=== PATIENT | female | born 1950 | race Caucasian/White ===

== ENCOUNTER 2021-01-31 06:28 | Outpatient (REF) | payer MEDICARE, OTHER, SELFPAY ==
[2021-01-31 07:07] LABS: MANUAL DIFF FLAG NO
[2021-01-31 07:10] LABS: Basophils Absolute Auto 0.1 X10*3/uL (0.0-0.2); Basophils Percent Auto 0.8 % (0-2); Eosinophils Absolute Auto 0.3 X10*3/uL (0.0-0.4); Hematocrit 44.8 % (37-47); Hemoglobin 14.8 g/dl (12.0-16.0); Imm Gran Abs Auto 0.01 X10*3/uL (0.00-0.03); Imm Gran Pct Auto 0.2 % (0.0-0.4); Lymphocytes Absolute Auto 2.2 X10*3/uL (1.2-4.9); Mean Corpuscular Hemoglobin 29.2 pg (27.0-33.0); Mean Corpuscular Volume 88.4 fL (80-98); Mean Platelet Volume 11.2 fL (9.4-12.3); Monocytes Absolute Auto 0.5 X10*3/uL (0.1-1.2); Monocytes Percent Auto 7.7 % (2-11); Neutrophils Percent Auto 50.3 % (45-73); Platelet Count 266 X10*3/uL (160-400); Red Blood Count 5.07 X10*6/uL (4.20-5.50); Red Cell Distribution Width 12.7 % (11.0-16.0)
[2021-01-31 07:48] LABS: Alanine Aminotransferase 19 U/L (0-31); Albumin Level 4.4 g/dL (3.5-5.0); Alkaline Phosphatase 45 U/L (39-117); Anion Gap 12 (12-20); Aspartate Amino Transferase 21 U/L (5-31); Bilirubin Total 0.7 mg/dL (0.0-1.0); Blood Urea Nitrogen 13 mg/dL (9-16); Calcium 9.6 mg/dL (8.4-10.2); Carbon Dioxide 31 mmol/L (22-29); Chloride 102 mmol/L (96-108); Cholesterol 225 mg/dL; Estimated Glomerular Filt Rate > 60; Glucose Fasting 103 mg/dL (60-99); HDL Cholesterol 56 mg/dL; LDL Cholesterol Calculated 142 mg/dl; Potassium 4.3 mmol/L (3.3-5.1); Sodium 141 mmol/L (135-145); Total Protein 7.6 g/dL (6.5-8.0); Triglycerides 138 mg/dL
== END 2021-01-31 06:29 | disposition home or self-care (01) ==
LOC: HO.LAB 06:28
PROVIDERS: PCP Internal Medicine; Visit Provider Internal Medicine
DX: I10 Essential (primary) hypertension (principal); K57.92 Diverticulitis of intestine, part unspecified, without perforation or abscess without bleeding; E78.00 Pure hypercholesterolemia, unspecified
CPT/HCPCS: 36415; 80053; 80061; 85025

== ENCOUNTER 2021-06-23 06:40 | Outpatient (REF) | payer MEDICARE, OTHER, SELFPAY ==
[2021-06-23 07:18] LABS: Cholesterol 215 mg/dL; HDL Cholesterol 61 mg/dL; LDL Cholesterol Calculated 130 mg/dl; Triglycerides 123 mg/dL
== END 2021-06-23 06:41 | disposition home or self-care (01) ==
LOC: HO.LAB 06:40
PROVIDERS: PCP Internal Medicine; Visit Provider Internal Medicine
DX: E78.00 Pure hypercholesterolemia, unspecified (principal)
CPT/HCPCS: 36415; 80061

== ENCOUNTER 2021-07-20 07:55 | Outpatient (REF) | payer MEDICARE, OTHER, SELFPAY ==
--- NOTE | ~2021-07-20 | MM_ITS ---
EXAMINATION: MM SCREENING DIGITAL BREAST TOMOSYNTHESIS, BILATERAL CLINICAL INFORMATION: Screening. Asymptomatic. The lifetime risk of breast cancer based on the Tyrer-Cuzick Model is 7%. COMPARISON: Mammography: 06/07/2020, 06/02/2019, 05/29/2018 TECHNIQUE: Digital breast tomosynthesis is performed in both the craniocaudal and mediolateral oblique views along with computer-aided detection (CAD). Synthesized 2D images are generated from the tomosynthesis. Additional right CC view is provided. FINDINGS: The breasts are almost entirely fatty (ACR BI-RADS breast composition Category a). There are no significant masses, abnormal calcifications, or other abnormalities. Background stromal markings are stable. The axilla are unremarkable. Again, there are some dermal lesions overlying the bilateral posterior medial inferior breasts. No significant changes from prior studies. MM/MM tomosynthesis screening BI IMPRESSION: No mammographic evidence of malignancy. ASSESSMENT: BI-RADS 2: Benign RECOMMENDATION: Routine annual mammography screening. This patient's information was entered into a reminder system with a target due date for their next mammogram.
== END 2021-07-20 07:56 | disposition home or self-care (01) ==
LOC: HO.MAMMO 07:55
PROVIDERS: PCP Internal Medicine; Visit Provider Obstetrics & Gynecology
DX: Z12.31 Encounter for screening mammogram for malignant neoplasm of breast (principal)
CPT/HCPCS: 77063; 77067

== ENCOUNTER 2022-03-16 06:30 | Day surgery (SDC) | payer MEDICARE, OTHER, SELFPAY ==
[2022-03-09 10:58] VITALS: BMI 31.8
--- NOTE | 2022-03-15 08:43 | HO.ANESPROP2 ---
Documented by User: Britta Jarquin NP 03/15/22 08:44 HPI - Anesthesia Eval Consult details Narrative: 71yo F for Colonoscopy Myasthenia Gravis - pyridostigmine BID PMFSH Past Medical History Medical History HTN (hypertension) Myasthenia gravis Surgical History Surgical History H/O colonoscopy Hx of section Hx of thymectomy Social History Social History Household Members: Spouse Patient Tobacco Use Status: Never used Tobacco Use of substances other than those prescribed or required for medical reasons: No Are you DNR?: No Advance Directives: No Advance Directives Information Provided: Yes Nutrition Risks: No Nutritional Risk Meds Allergies Allergy/AdvReac Type Severity Reaction Status Date / Time quinine [QUININE] Allergy Unknown UNKNOWN Verified 03/16/22 06:34 Home Medications Medication Instructions Recorded Confirmed Last Taken Type cholecalciferol (vitamin D3) 25 25 mcg PO DAILY 03/09/22 03/09/22 Unknown History mcg (1,000 unit) capsule (Vitamin D3) hydrochlorothiazide 12.5 mg tablet 12.5 mg PO DAILY 03/09/22 03/09/22 Unknown History pyridostigmine bromide 60 mg tablet 60 mg PO BID 03/09/22 03/09/22 03/16/22 History valsartan 80 mg tablet 80 mg PO DAILY 03/09/22 03/09/22 03/16/22 History Exam Exam Date and Time: March 15, 2022 0843 Height,Weight and Vital Signs: Height 5 ft 5 in Weight 86.636 kg Documented by User: Shanita Mclean MD 03/16/22 07:36 HPI - Anesthesia Eval Consult details Narrative: 71yo F for Colonoscopy Myasthenia Gravis - pyridostigmine am PMFSH Active Problems Active Problems: Myasthenia controlled. Pyridostigmine 45mg am. Asymptomatic No MERCEDEZ Past Medical History Medical History HTN (hypertension) Myasthenia gravis Family History Family history of problems with anesthesia: No Surgical History Surgical History H/O colonoscopy Hx of section Hx of thymectomy History of Problems with Anesthesia: No Social History Social History Household Members: Spouse Patient Tobacco Use Status: Never used Tobacco Use of substances other than those prescribed or required for medical reasons: No Are you DNR?: No Advance Directives: No Advance Directives Information Provided: Yes Nutrition Risks: No Nutritional Risk Meds Allergies Allergy/AdvReac Type Severity Reaction Status Date / Time quinine [QUININE] Allergy Unknown UNKNOWN Verified 03/16/22 06:34 Home Medications Medication Instructions Recorded Confirmed Last Taken Type cholecalciferol (vitamin D3) 25 25 mcg PO DAILY 03/09/22 03/09/22 Unknown History mcg (1,000 unit) capsule (Vitamin D3) hydrochlorothiazide 12.5 mg tablet 12.5 mg PO DAILY 03/09/22 03/09/22 Unknown History pyridostigmine bromide 60 mg tablet 60 mg PO BID 03/09/22 03/09/22 03/16/22 History valsartan 80 mg tablet 80 mg PO DAILY 03/09/22 03/09/22 03/16/22 History Exam Height,Weight and Vital Signs: Height 5 ft 5 in Weight 86.636 kg Vital Signs Temp Pulse Resp BP Pulse Ox 03/16/22 06:42 97.6 F 83 16 175/94 H 98 Airway Mallampati Class: II TM Dist: >3cm Neck ROM: Full Partial: Lower Heart: RRR Lungs: CTAB Assessment and Plan Assessment Anesthesia Assessment: Anesthesia Plan Discussed and Chart Reviewed Final Anesthetic Review Family History of Problems with Anesthesia: No History of Problems with Anesthesia: No NPO: Yes ASA Class: II Final Preanesthetic Review: No Changes in Pt Med Stat, Meds/Allgs Chart Reviewed, Consent Obtained/Reviewed and Anes Risks/Benef Reviewed Patient Risk: Intermediate Procedure Risk: Low Assessment/Block/Sedation in SS: Assess/Block/Sedation-SS Anesthetic Plan Anesthetic Plan: MAC: Disposition: Standard PACU
[2022-03-16 06:35] VITALS: BMI 31.2
[2022-03-16 06:42] VITALS: BP 175/94; PULSE 83; RESP 16; TEMP 36.4; O2SAT 98
--- NOTE | 2022-03-16 06:48 | PC.NURSE ---
patient sttes she runs high with her bp. asymptomatic.
[2022-03-16] MEDS: Lactated Ringers 1,000 ML 100 ML IVCONT (06:56)
--- NOTE | 2022-03-16 08:26 | PM.OP ---
Brief Operative Note Date of Service: 03/16/22 Pre-op diagnosis: Screening Post-op diagnosis: other (Diverticulosis, Internal hemorrhoids) Procedure: Colonoscopy to the cecum and TI Surgeon: Tony Michel Anesthesia: MAC Was an Aircraft Painter Apprentice used for this Procedure?: No Estimated blood loss (mL): 0 Pathology: none sent Condition: stable Disposition: PACU
[2022-03-16 08:27] VITALS: BP 97/52; PULSE 85; RESP 16; TEMP 36.3; O2SAT 96
[2022-03-16 08:42] VITALS: BP 123/61; PULSE 63; RESP 16; TEMP 36.3; O2SAT 96
--- NOTE | 2022-03-16 16:12 | OP_ITS ---
SURGEON: Tony Michel MD INDICATIONS: The patient presents for evaluation of colorectal cancer screening. Full consent has been obtained from her for this, including risks of bleeding and perforation. PREOPERATIVE DIAGNOSIS: Colorectal cancer screening. POSTOPERATIVE DIAGNOSIS: PROCEDURE PERFORMED: Colonoscopy to the cecum and terminal ileum. ESTIMATED BLOOD LOSS: COMPLICATIONS: ANESTHESIA: Monitored anesthesia care. ASSISTANTS: SPECIMENS: POSTOPERATIVE DIAGNOSES: Colorectal cancer screening, diverticulosis and internal hemorrhoids. DESCRIPTION OF PROCEDURE: The patient was placed in the left lateral decubitus position. The digital rectal exam revealed no abnormalities. The Olympus video pediatric colonoscope was entered into the rectum and advanced easily to the cecum. Once in the cecum, I did identify normal-appearing cecal pouch with appendiceal orifice and a normal-appearing ileocecal valve. The terminal ileum was cannulated and appeared normal. Scope was withdrawn back from the colon. The entire cecum and ileocecal valve appeared normal. The scope was slowly withdrawn assessing all mucosal surfaces carefully. Preparation was excellent. I did not visualize any sign of polyps, colitis, nor angiodysplasia. There was a mild amount of sigmoid diverticulosis. In the rectum, scope was retroflexed visualizing internal hemorrhoids, but no other pathology. The rectal mucosa appeared normal. The scope was straightened and withdrawn from the patient. She tolerated the procedure well and was returned to recovery area in stable condition. IMPRESSION: 1. Diverticulosis. 2. Internal hemorrhoids. PLAN: Given the negative exam, no significant family history, and a negative exam in 2010, I do not think she will need any further screening colonoscopies given her age of 71. She will otherwise see me on a p.r.n. basis. Tony Michel MD RMW/OWENL / [id number]
== END 2022-03-16 09:07 | disposition home or self-care (01) ==
PROVIDERS: PCP Internal Medicine; Visit Provider Internal Medicine
PROC: 0DJD8ZZ Inspection of Lower Intestinal Tract, Via Natural or Artificial Opening Endoscopic (ICD-10-PCS; CPT 45378; principal; 2022-03-16 07:30)
DX: Z12.11 Encounter for screening for malignant neoplasm of colon (principal); K57.30 Diverticulosis of large intestine without perforation or abscess without bleeding; K64.8 Other hemorrhoids; I10 Essential (primary) hypertension; G70.00 Myasthenia gravis without (acute) exacerbation; Z90.89 Acquired absence of other organs; Z79.899 Other long term (current) drug therapy
CPT/HCPCS: G0105

== ENCOUNTER 2022-07-24 08:01 | Outpatient (REF) | payer MEDICARE, OTHER, SELFPAY ==
--- NOTE | ~2022-07-24 | MM_ITS ---
EXAMINATION: MM SCREENING DIGITAL BREAST TOMOSYNTHESIS, BILATERAL CLINICAL INFORMATION: Screening. Asymptomatic. The lifetime risk of breast cancer based on the Tyrer-Cuzick Model is 6%. COMPARISON: Mammography: 06/07/2020, 06/02/2019, 05/29/2018 TECHNIQUE: Digital breast tomosynthesis is performed in both the craniocaudal and mediolateral oblique views along with computer-aided detection (CAD). Synthesized 2D images are generated from the tomosynthesis. FINDINGS: The breasts are almost entirely fatty (ACR BI-RADS breast composition Category a). Background stromal markings are stable. Again, there are some dermal lesions overlying the posterior inferior medial breasts. There is no architectural abnormality or interval mass or developing density. No abnormal calcifications. No significant changes. MM/MM tomosynthesis screening BI IMPRESSION: No mammographic evidence of malignancy. ASSESSMENT: BI-RADS 2: Benign RECOMMENDATION: Routine annual mammography screening. This patient's information was entered into a reminder system with a target due date for their next mammogram.
== END 2022-07-24 08:02 | disposition home or self-care (01) ==
LOC: HO.MAMMO 08:01
PROVIDERS: Absent Provider Obstetrics & Gynecology; PCP Internal Medicine; Visit Provider Internal Medicine
DX: Z12.31 Encounter for screening mammogram for malignant neoplasm of breast (principal)
CPT/HCPCS: 77063; 77067

== ENCOUNTER 2022-08-14 08:36 | Outpatient (REF) | payer MEDICARE, OTHER, SELFPAY ==
[2022-08-14 08:42] LABS: MANUAL DIFF FLAG NO
[2022-08-14 09:28] LABS: Basophils Percent Auto 0.5 % (0-2); Eosinophils Absolute Auto 0.3 X10*3/uL (0.0-0.4); Eosinophils Percent Auto 4.4 % (0-4); Hematocrit 45.7 % (37.0-47.0); Hemoglobin 14.9 g/dl (12.0-16.0); Imm Gran Abs Auto 0.01 X10*3/uL (0.00-0.03); Imm Gran Pct Auto 0.1 % (0.0-0.4); Lymphocytes Absolute Auto 2.6 X10*3/uL (1.2-4.9); Lymphocytes Percent Auto 34.8 % (20-40); Mean Corpuscular HGB Conc 32.6 g/dl (31.0-35.0); Mean Corpuscular Volume 88.9 fL (80.0-98.0); Mean Platelet Volume 11.9 fL (9.4-12.3); Monocytes Absolute Auto 0.6 X10*3/uL (0.1-1.2); Monocytes Percent Auto 7.8 % (2-11); Neutrophils Absolute Auto 3.9 x10*3/uL (2.0-8.3); Neutrophils Percent Auto 52.4 % (45-73); Platelet Count 252 X10*3/uL (160-400); Red Blood Count 5.14 X10*6/uL (4.20-5.50); Red Cell Distribution Width 12.9 % (11.0-16.0); White Blood Count 7.5 X10*3/uL (4.8-10.8)
[2022-08-14 09:47] LABS: Anion Gap 17 (12-20); Blood Urea Nitrogen 15 mg/dL (9-16); Calcium 9.8 mg/dL (8.4-10.2); Carbon Dioxide 28 mmol/L (22-29); Chloride 101 mmol/L (96-108); Estimated Glomerular Filt Rate > 60; Glucose Random 98 mg/dL (60-115); Potassium 4.7 mmol/L (3.3-5.1); Sodium 141 mmol/L (135-145)
== END 2022-08-14 08:37 | disposition home or self-care (01) ==
LOC: HO.LAB 08:36
PROVIDERS: PCP Internal Medicine; Visit Provider Internal Medicine
DX: I10 Essential (primary) hypertension (principal); K57.90 Diverticulosis of intestine, part unspecified, without perforation or abscess without bleeding
CPT/HCPCS: 36415; 80048; 85025

== ENCOUNTER 2023-05-02 06:06 | Outpatient (REF) | payer MEDICARE, OTHER, SELFPAY ==
[2023-05-02 06:19] LABS: MANUAL DIFF FLAG NO
[2023-05-02 09:13] LABS: Basophils Percent Auto 0.4 % (0-2); Eosinophils Absolute Auto 0.3 X10*3/uL (0.0-0.4); Eosinophils Percent Auto 3.4 % (0-4); Hematocrit 45.7 % (37.0-47.0); Hemoglobin 14.6 g/dl (12.0-16.0); Imm Gran Abs Auto 0.02 X10*3/uL (0.00-0.03); Imm Gran Pct Auto 0.3 % (0.0-0.4); Lymphocytes Absolute Auto 2.5 X10*3/uL (1.2-4.9); Lymphocytes Percent Auto 32.6 % (20-40); Mean Corpuscular HGB Conc 31.9 g/dl (31.0-35.0); Mean Corpuscular Hemoglobin 28.5 pg (27.0-33.0); Mean Corpuscular Volume 89.3 fL (80.0-98.0); Mean Platelet Volume 12.4 fL (9.4-12.3); Monocytes Absolute Auto 0.6 X10*3/uL (0.1-1.2); Monocytes Percent Auto 7.4 % (2-11); Neutrophils Absolute Auto 4.2 x10*3/uL (2.0-8.3); Neutrophils Percent Auto 55.9 % (45-73); Platelet Count 258 X10*3/uL (160-400); Red Blood Count 5.12 X10*6/uL (4.20-5.50); Red Cell Distribution Width 13.2 % (11.0-16.0); White Blood Count 7.6 X10*3/uL (4.8-10.8)
[2023-05-02 10:07] LABS: Alanine Aminotransferase 17 U/L (0-31); Albumin Level 4.3 g/dL (3.5-5.0); Alkaline Phosphatase 46 U/L (39-117); Anion Gap 14 (12-20); Aspartate Amino Transferase 23 U/L (5-31); Bilirubin Total 0.4 mg/dL (0.0-1.0); Blood Urea Nitrogen 13 mg/dL (9-16); Calcium 9.9 mg/dL (8.4-10.2); Carbon Dioxide 27 mmol/L (22-29); Chloride 103 mmol/L (96-108); Cholesterol 213 mg/dL; Estimated Glomerular Filt Rate > 60; Glucose Fasting 89 mg/dL (60-99); HDL Cholesterol 63 mg/dL; LDL Cholesterol Calculated 133 mg/dl; Potassium 4.3 mmol/L (3.3-5.1); Sodium 140 mmol/L (135-145); Total Protein 7.4 g/dL (6.5-8.0); Triglycerides 87 mg/dL
== END 2023-05-02 06:07 | disposition home or self-care (01) ==
LOC: HO.LAB 06:06
PROVIDERS: PCP Internal Medicine; Visit Provider Internal Medicine
DX: I10 Essential (primary) hypertension (principal); E78.00 Pure hypercholesterolemia, unspecified; K57.90 Diverticulosis of intestine, part unspecified, without perforation or abscess without bleeding
CPT/HCPCS: 36415; 80053; 80061; 85025

== ENCOUNTER 2023-09-18 08:18 | Outpatient (REF) | payer MEDICARE, OTHER, SELFPAY | END 2023-09-18 08:19 | disposition home or self-care (01) | LOC: HO.MAMMO 08:18 | PROVIDERS: PCP Internal Medicine; Visit Provider Internal Medicine | DX: Z12.31 Encounter for screening mammogram for malignant neoplasm of breast (principal) | CPT/HCPCS: 77063; 77067 ==

== ENCOUNTER → 2023-09-18 08:30 | Outpatient (BNV) | payer MEDICARE, OTHER, SELFPAY | PROVIDERS: PCP Internal Medicine; Visit Provider Radiology Diagnostic Radiology | DX: Z12.31 Encounter for screening mammogram for malignant neoplasm of breast (principal) | CPT/HCPCS: 77063; 77067 ==

== ENCOUNTER 2024-06-17 13:51 | Outpatient (REF) | payer MEDICARE, OTHER, SELFPAY ==
[2024-06-17 14:18] LABS: MANUAL DIFF FLAG NO
[2024-06-17 15:21] LABS: Basophils Percent Auto 0.4 % (0-2); Eosinophils Absolute Auto 0.2 X10*3/uL (0.0-0.4); Eosinophils Percent Auto 2.5 % (0-4); Hematocrit 44.2 % (37.0-47.0); Imm Gran Abs Auto 0.03 X10*3/uL (0.00-0.03); Imm Gran Pct Auto 0.4 % (0.0-0.4); Lymphocytes Absolute Auto 2.1 X10*3/uL (1.2-4.9); Lymphocytes Percent Auto 27.6 % (20-40); Mean Corpuscular HGB Conc 33.9 g/dl (31.0-35.0); Mean Corpuscular Hemoglobin 29.3 pg (27.0-33.0); Mean Corpuscular Volume 86.3 fL (80.0-98.0); Mean Platelet Volume 11.4 fL (9.4-12.3); Monocytes Absolute Auto 0.6 X10*3/uL (0.1-1.2); Monocytes Percent Auto 7.2 % (2-11); Neutrophils Absolute Auto 4.7 x10*3/uL (2.0-8.3); Neutrophils Percent Auto 61.9 % (45-73); Platelet Count 255 X10*3/uL (160-400); Red Blood Count 5.12 X10*6/uL (4.20-5.50); White Blood Count 7.6 X10*3/uL (4.8-10.8)
[2024-06-17 15:23] LABS: Estimated Average Glucose 105 mg/dL; Hemoglobin A1c % 5.3 % (<6.0)
[2024-06-17 15:51] LABS: Alanine Aminotransferase 20 U/L (0-31); Albumin Level 4.5 g/dL (3.5-5.0); Alkaline Phosphatase 48 U/L (39-117); Anion Gap 16 (12-20); Aspartate Amino Transferase 22 U/L (5-31); Bilirubin Total 0.4 mg/dL (0.0-1.0); Blood Urea Nitrogen 12 mg/dL (9-16); C Reactive Protein 0.12 mg/dL (< or = 0.50); Calcium 10.1 mg/dL (8.4-10.2); Carbon Dioxide 24 mmol/L (22-29); Chloride 104 mmol/L (96-108); Estimated Glomerular Filt Rate > 60; Glucose Random 100 mg/dL (60-115); Potassium 3.6 mmol/L (3.3-5.1); Sodium 140 mmol/L (135-145); Total Protein 7.9 g/dL (6.5-8.0)
[2024-06-17 16:07] LABS: Free T4 (Free Thyroxine) 0.88 ng/dL (0.71-1.85); Insulin 7 uU/mL (2-29); Thyroid Stimulating Hormone 3.17 uIU/mL (0.32-4.0)
[2024-06-17 16:13] LABS: Vitamin B12 342 pg/mL (200-900)
== END 2024-06-17 13:52 | disposition home or self-care (01) ==
LOC: HO.LAB 13:51
PROVIDERS: PCP Internal Medicine; Visit Provider Internal Medicine
DX: I10 Essential (primary) hypertension (principal); R55 Syncope and collapse; R53.1 Weakness; Z13.1 Encounter for screening for diabetes mellitus
CPT/HCPCS: 36415; 80053; 82550; 82607; 83036; 83525; 84439; 84443; 85025; 86140

== ENCOUNTER 2024-09-23 08:13 | Outpatient (REF) | payer MEDICARE, OTHER, SELFPAY ==
--- OUTSIDE RECORDS SUMMARY | 2024-09-23 23:00 | XMS_ITS | Continuity of Care Document ---
Author Organization [facility] Address [address] [place] [address]- Care Team Providers Care Preschool Assistant Principal Name Role Phone Franklin Moran MD Primary Care Physician [phone] [facility] [id number] Date(s): 08/04/24 - 09/03/24 [facility] [address] [place] [id number] Attending Physician: Wagner Mata Admitting Physician: Wagner Mata Referring Physician: Wagner Mata Encounter Type: Triage Allergies, Adverse Reactions, Alerts Substance Criticality Severity Reaction Reaction Severity Status shellfish 1 High criticality Moderate very scratc hy throat Active quiNINE Unable to assess criticality Unknown avoids due totaking Mestinon Active 1carries EpiPen Medications EpiPen 2-Kwame = 0.3 mg, Intramuscular, PRN as needed for allergic reactions, 0 Refills, Maintenance, 05/13/23 10:33:00 AM EDT Start Date: 05/13/23 Status: Ordered Repeat number: 1 hydrochlorothiazide 12.5 mg oral tablet 1.5 tablet = 18.75 mg, By Mouth, Daily, Maintenance, 05/14/23 5:17:00 PM EDT, Partial fill upon patient request if the prescription is for a schedule II opioid drug. Start Date: 05/14/23 Status: Ordered Repeat number: 1 ibuprofen 600 mg oral tablet 600 mg, 1, tablet, By Mouth, 4 times a day, # 40 tablet, Refills 0, Tot. Refills 0, Maintenance, 06/25/23 10:39:00 AM EDT, Route to Pharmacy Electronically, [facility]/pharmacy #[id number], Partial fill upon patient request if the prescription is for a schedule II opioid drug., 165.1, cm, 06/25/23 7:45:00 EDT, Height, 84.2, kg, 06/25/23 7:45:00 EDT, Dry Weight Start Date: 06/25/23 Status: Ordered Quantity: 40.0 Unit: tablet Repeat number: 1 Mestinon 60 mg oral tablet 15 mg, 0.25, tablet, By Mouth, Daily, Refills 0, Maintenance, 05/13/23 10:32:00 AM EDT Start Date: 05/13/23 Status: Ordered Repeat number: 1 MiraLax oral powder for reconstitution = 17 Gm, By Mouth, Daily, dissolve in water before taking, # 255 Gm, 0 Refills, Maintenance, 06/25/23 10:39:00 AM EDT, REC Powder, [facility]/pharmacy #[id number], Partial fill upon patient request if the prescription is for a schedule II opioid drug., 17 Gm By Mouth Daily,Instr:dissolve in water before taking, 165.1, cm, 06/25/23 7:45:00 EDT, Height, 84.2, kg, 06/25/23 7:45:00 EDT, Dry Weight Start Date: 06/25/23 Status: Ordered Quantity: 255.0 Unit: g Repeat number: 1 Motrin IB 200 mg oral tablet 1 - 2 tablet, By Mouth, Every 6 hours, PRN as needed for pain or fever, Maintenance, 05/14/23 5:21:00PM EDT Start Date: 05/14/23 Status: Ordered Repeat number: 1 Multivitamin 1 tablet, By Mouth, Daily, 0 Refills, Maintenance, 05/13/23 10:33:00 AM EDT Start Date: 05/13/23 Status: Ordered Repeat number: 1 senna - oral tablet 2 tablet, By Mouth, Daily, 0 Refills, Maintenance, 07/17/23 3:19:00 PM EDT, Partial fill upon patient request if the prescription is for a schedule II opioid drug. Start Date: 07/17/23 Status: Ordered Repeat number: 1 Tylenol 325 mg oral tablet 650 mg, 2, tablet, By Mouth, Every 4 hours, PRN, # 40 tablet, Refills 0, Tot. Refills 0, Maintenance, for pain, 06/25/23 10:38:00 AM EDT, Route to Pharmacy Electronically, [facility]/pharmacy #[id number], Partial fill upon patient request if the prescription is for a schedule II opioid drug., 165.1, cm, 237:45:00 EDT, Height, 84.2, kg, 06/25/23 7:45:00 EDT, Dry Weight Start Date: 06/25/23 Status: Ordered Quantity: 40.0 Unit: tablet Repeat number: 1 valsartan 80 mg oral tablet 120 mg, 1.5, tablet, By Mouth, Daily, Maintenance, 05/14/23 5:19:00 PM EDT Start Date: 05/14/23 Status: Ordered Repeat number: 1 Vitamin D3 1000 intl units oral tablet 1 tablet = 25 mcg, By Mouth, Daily, 0 Refills, Maintenance, 05/13/23 10:33:00 AM EDT Start Date: 05/13/23 Status: Ordered Repeat number: 1 Problem List Condition Confirmation Course Effective Dates Status Health St atus Informant Endometrial cancer Confirmed Active Obese class I Confirmed Active Social History Social History Type Response Smoking Status Never (less than 100 in lifetime) entered on: 05/13/23 Sex Female Sex Representation Female (finding) Patient Care team information Care Team Personnel Name: Franklin Moran MD Position: [facility] Outreach Member Role: PCP Address: [address] [place] [address] [place] [address]- Telecom: Care Team Related Persons Name: ALEXYS ROSS Insurance Providers Guarantor name: NA Health Plan Information #: 1 Payer: MEDICARE PART B OUTPT Member Number: NA Policy Number: NA Group Number: NA Health Plan Information #: 2 Payer: [facility] IN[employer] Member Number: NA Policy Number: NA Group Number: NA
--- OUTSIDE RECORDS SUMMARY | 2024-09-23 23:00 | XMS_ITS | Patient Health Record ---
Author Organization [facility] Address [address] [place] [address] Care Team Providers Care Valet Parking Attendant Name Role Phone Franklin Moran MD Primary Care Provider Tony Lance Unavailable [phone] ALLERGIES No Known Allergies REASON FOR REFERRAL No Information MEDICATIONS Medication SIG (Take, Route, Frequency, Duration) Notes Start Date End Date Status pyRIDostigmine [place] 60 MG Oral for 90 Active Vitamin D 25 MCG (1000 UT) 1 tablet Oral ly Once a day for 30 day(s) Active hydroCHLOROthiazide 12.5 MG Oral for 80 Active Valsartan 80 MG Oral for 80 Ac tive IMMUNIZATIONS Vaccine Route Administration Date Status Comme nts Influenza Unknown 06/14/2021 Administered SOCIAL HISTORY Tobacco Use: Social History Observation Description Date Details (start date - stop date) Never Smoker NA - NA Sex Assigned At : Social History Observation Description Sex Assigned At Unknown Tobacco Use/Smoking Question Answer Notes Patient is a nonsmoker Alcohol Screen Question Answer Notes Did you have a drink contain ing alcohol in the past year? Yes How often did you have a dri nk containing alcohol in the past year? 4 or more times a week (4 points) How many drinks did you have on a typical day when you were drinking in the past year? 1 or 2 drinks (0 point) How often did you have 6 or more drinks on one occasion in the past year? Never (0 point) Points 4 Interpretation Positive PROBLEMS Problem Type ICD Code Onset Dates Problem Status W/U Status Risk SNOMED Code Notes Problem Encounter for screening for malignant neoplasm of colon (Z12.11) Active confirmed 888944549 Problem Preprocedural examination (Z01.818) Active confirmed 820725345761241 Problem Diverticulosis of colon (K57.30) Active confirmed Diverticulosi s of colon (215487486) PLAN OF TREATMENT Future Test Test Name Order Date COLONOSCOPY 09/12/2021 Insurance Providers Payer Name Payer Address Payer Phone Subscriber Number Group Number Insured Name Patient Relationship to Insured Coverage Start Date Coverage End Date MEDICARE OF [place] [address] [place] [address] [id number] [place], [place] Self - patient is the insured [facility] INDEMNITY [address] [place] [address] [id number] [place], [place] Self - patient is the insured MEDICAL (GENERAL) HISTORY Medical History History ICD Code Denies [place],DM,CVA,Lung disease,renal dise ase Hypertension Myasthenia Gravis Negative screening colonoscopy in March Surgical History Surgery Date(Month/Year) Thymectomy for the Myasthenia Gravis 197 7 1981
== END 2024-09-23 08:14 | disposition home or self-care (01) ==
LOC: HO.MAMMO 08:13
PROVIDERS: Absent Provider Obstetrics & Gynecology; PCP Internal Medicine; Visit Provider Internal Medicine
DX: Z12.31 Encounter for screening mammogram for malignant neoplasm of breast (principal)
CPT/HCPCS: 77063; 77067

== ENCOUNTER → 2024-09-23 08:30 | Outpatient (BNV) | payer MEDICARE, OTHER, SELFPAY | PROVIDERS: Absent Provider Obstetrics & Gynecology; PCP Internal Medicine; Visit Provider Internal Medicine | DX: Z12.31 Encounter for screening mammogram for malignant neoplasm of breast (principal) | CPT/HCPCS: 77063; 77067 ==

== ENCOUNTER 2025-04-02 14:18 | Outpatient (REF) | payer MEDICARE, OTHER, SELFPAY ==
[2025-04-02 15:07] LABS: MANUAL DIFF FLAG NO
[2025-04-02 15:21] LABS: Basophils Percent Auto 0.5 % (0-2); Eosinophils Absolute Auto 0.3 X10*3/uL (0.0-0.4); Eosinophils Percent Auto 3.4 % (0-4); Hematocrit 42.8 % (37.0-47.0); Imm Gran Abs Auto 0.02 X10*3/uL (0.00-0.03); Imm Gran Pct Auto 0.2 % (0.0-0.4); Lymphocytes Absolute Auto 2.3 X10*3/uL (1.2-4.9); Lymphocytes Percent Auto 28.6 % (20-40); Mean Corpuscular HGB Conc 32.7 g/dl (31.0-35.0); Mean Corpuscular Hemoglobin 28.5 pg (27.0-33.0); Mean Corpuscular Volume 87.2 fL (80.0-98.0); Mean Platelet Volume 10.9 fL (9.4-12.3); Monocytes Absolute Auto 0.6 X10*3/uL (0.1-1.2); Monocytes Percent Auto 7.8 % (2-11); Neutrophils Absolute Auto 4.9 x10*3/uL (2.0-8.3); Neutrophils Percent Auto 59.5 % (45-73); Platelet Count 245 X10*3/uL (160-400); Red Blood Count 4.91 X10*6/uL (4.20-5.50); Red Cell Distribution Width 13.3 % (11.0-16.0); White Blood Count 8.2 X10*3/uL (4.8-10.8)
[2025-04-02 15:34] LABS: Estimated Average Glucose 111 mg/dL; Hemoglobin A1c % 5.5 % (<6.0); Total Hemoglobin (HGBA1C) 3697.5875 umol/L
[2025-04-02 16:01] LABS: Alanine Aminotransferase 26 U/L (0-31); Albumin Level 4.4 g/dL (3.5-5.0); Alkaline Phosphatase 54 U/L (39-117); Anion Gap 11 (12-20); Aspartate Amino Transferase 35 U/L (5-31); Bilirubin Direct 0.1 mg/dL (0.0-0.5); Bilirubin Total 0.3 mg/dL (0.0-1.0); Blood Urea Nitrogen 14 mg/dL (9-16); Calcium 10.1 mg/dL (8.4-10.2); Carbon Dioxide 29 mmol/L (22-29); Chloride 103 mmol/L (96-108); Cholesterol 220 mg/dL (<200); Estimated Glomerular Filt Rate > 60; Glucose Random 98 mg/dL (60-115); HDL Cholesterol 56 mg/dL (>40); LDL Cholesterol Calculated 121 mg/dL (<100); Sodium 139 mmol/L (135-145); Total Protein 7.5 g/dL (6.5-8.0); Triglycerides 216 mg/dL (<150)
[2025-04-02 16:17] LABS: Vitamin D 25-OH Total 49.1 ng/mL (>30)
== END 2025-04-02 14:19 | disposition home or self-care (01) ==
LOC: HO.LAB 14:18
PROVIDERS: PCP Internal Medicine; Visit Provider Physician Assistant
DX: Z76.89 Persons encountering health services in other specified circumstances (principal); I10 Essential (primary) hypertension; G70.00 Myasthenia gravis without (acute) exacerbation; E66.9 Obesity, unspecified; Z68.32 Body mass index [BMI] 32.0-32.9, adult; E78.5 Hyperlipidemia, unspecified; Z79.899 Other long term (current) drug therapy
CPT/HCPCS: 36415; 80048; 80061; 80076; 82306; 83036; 85025; 99202

== ENCOUNTER 2025-04-02 14:18 | Outpatient (AMB) | payer MEDICARE, OTHER, SELFPAY ==
--- OUTSIDE RECORDS SUMMARY | 2025-04-02 14:20 | XMS_ITS | Patient Health Record ---
Author Organization [facility] Address [address] [place] [address] Care Team Providers Care Salicylic Acid Blender Name Role Phone Franklin Moran MD Primary Care Provider Tony Lance Unavailable [phone] Allergies No Known Allergies Reason For Referral No Information Medications Medication SIG (Take, Route, Frequency, Duration) Notes Start Date End Date Status pyRIDostigmine [place] 60 MG Oral for 90 Active Vitamin D 25 MCG (1000 UT) 1 tablet Oral ly Once a day for 30 day(s) Active hydroCHLOROthiazide 12.5 MG Oral for 80 Active Valsartan 80 MG Oral for 80 Ac tive Immunizations Vaccine Route Administration Date Status Comme nts Influenza Unknown 06/14/2021 Administered Social History Tobacco Use: Social History Observation Description Date Details (start date - stop date) Never Smoker NA - NA Tobacco Use/Smoking Question Answer Notes Patient is [...] Never (0 point) Points 4 Interpretation Positive Section Notes: Nonsmoker, no significant al cohol use Problems Problem Type SNOMED Code ICD Code Onset Dates Problem Status W/U Status Risk Notes Problem [id number] Encounter for screening for malignant neoplasm of colon (Z12.11) Active confirmed Problem [id number] Preprocedural examination (Z01.818) Active confirmed Problem Diverticulosis of colon (235036607) Diverticulosis of colon (K57.30) Active confirmed Plan Of Treatment Future Test Test Name Order Date COLONOSCOPY 09/12/2021 Insurance Providers Payer Name Payer Address Payer Phone Subscriber Number Group Number Insured Name Patient Relationship to Insured Coverage Start Date Coverage End Date MEDICARE OF [place] [address] [place] [address] [id number] [place], [place] Self - patient is the insured [facility] INDEMNITY [address] [place] [address] [id number] [place], [place] Self - patient is the insured Medical (General) History Medical History History ICD Code Denies [place],DM,CVA,Lung disease,renal dise ase Hypertension Myasthenia Gravis Negative screening colonoscopy in March Surgical History Surgery Date(Month/Year) Thymectomy for the Myasthenia Gravis 197 7 1981
--- NOTE | 2025-04-02 14:27 | A.OFFPC_ITS ---
Vital Signs 04/02/25 14:32 04/02/25 14:49 Height 5 ft 5 in Weight 89.811 kg BMI 32.9 BP 178/98 H 132/88 Respiration 16 Pulse 82 Pulse Source Pulse Oximeter Temp 97.9 F Temp Source Temporal Artery Scan Pulse Oximetry (%) 98 Oxygen Delivery Method Room Air Intake Visit Reasons: Routine Certified Orthotist Required: No Accompanied by: Self / Same As Patient Allergies shellfish derived Allergy (Severe, Verified 04/02/25 14:30) Anaphylaxis quinine (QUININE) Allergy (Unknown, Verified 04/02/25 14:28) UNKNOWN HPI HPI Comments History of Present Illness Details 70-year-old female with history of myast henia gravis, hypertension, hyperlipidemia, and obesity presents to the office today for management of chronic conditions as well as to establish care. Hypertension-initial blood pressure 178/98 on recheck 132/88. Compliant with valsartan and hydrochlorothiazide Hyperlipidemia-not on statin. Last LDL 133 Myasthenia gravis-s/p thymectomy. Currently controlled with Mestinon. Previously following with Dr. Maguire in Neurology who felt the patient was in remission but ultimately stayed on medication. No sx in last 20-25 years. She has never required IV steroids. She has been discharged from Neurology and would like to remain with primary care unless symptoms recur History of endometrial cancer-2022. She is s/p total hysterectomy through [facility] and underwent radiation x3 Concerns: none Health maintenance: Mammo utd Colonoscopy utd- prn follow up ROS: General: No fevers, malaise, unintentional weight loss HEENT: No blurred vision, diplopia. No lid drooping Cardiovascular: No chest pain, palpitations, or leg edema Respiratory: No shortness of breath, wheezing, cough GI: No dysphagia MSK: No myalgia, back pain Neuro: No headaches, weakness, paresthesias Skin: No rashes or lesions EXAM: Constitutional - Awake and Alert, No apparent distress Eyes - PERRL. No ptosis Cardiovascular - S1S2, RRR, No edema Respiratory - Normal lung expansion, Normal respiratory effort, No respiratory distress, CTA bilaterally Extremities - no calf tenderness bilaterally, no swelling Skin - Warm/Dry Neurological - Alert & oriented x3 Psychological - Appropriate affect PENDING SALE TO [facility] Medical History (Updated 04/02/25 @ 14:46 by TIMOTHY Segovia) Obesity HLD (hyperlipidemia) Myasthenia gravis HTN (hypertension) Surgical History (Updated 04/01/25 @ 16:23 by Denisse Piper) Hx of section Hx of thymectomy H/O colonoscopy (~03/16/22) Social History Household Members: Spouse Patient Tobacco Use Status: Never used Tobacco Physical exam (Primary Care) Tobacco/Smoking Status: Tobacco use Status Patient Tobacco Use Status Never used Tobacco 03/16/22 08:25 Coding Level of Care Code New Pt Level 4 (04022) Complex EM visit Add On G2211 Diagnoses HTN (hypertension) I10 Myasthenia gravis G70.00 Assessment & Plan Assessment & Plan (1) HTN (hypertension): Code(s): I10 - Essential (primary) hypertension Category: Medical Plan: Controlled on recheck with blood pressure 132/88. Continue hydrochlorothiazide and valsartan. (2) Myasthenia gravis: Code(s): G70.00 - Myasthenia gravis without (acute) exacerbation Category: Medical Plan: Stable/remission. Continue mestinon. Records obtained in office. Will continue following, steve long recur, refer to neurology Plan Follow-up in office in 3 months. Labs to be completed. Orders: Orders Basic Metabolic Panel Today E66.9 - Obesity, unspecified, E78.5 - Hyperlipidemia, unspecified, G70.00 - Myasthenia gravis without (acute) exacerbation, I10 - Essential (primary) hypertension Liver Panel Today E66.9 - Obesity, unspecified, E78.5 - Hyperlipidemia, unspecified, G70.00 - Myasthenia gravis without (acute) exacerbation, I10 - Essential (primary) hypertension Vitamin D 25-OH Total Today E66.9 - Obesity, unspecified, E78.5 - Hyperl ipidemia, unspecified, G70.00 - Myasthenia gravis without (acute) exacerbation, I10 - Essential (primary) hypertension Hemoglobin A1c Today E66.9 - Obesity, unspecified, E78.5 - Hyperlipidemia, unspecified, G70.00 - Myasthenia gravis without (acute) exacerbation, I10 - Essential (primary) hypertension Lipid Panel Today E66.9 - Obesity, unspecified, E78.5 - Hyperlipidemia, unspecified, G70.00 - Myasthenia gravis without (acute) exacerbation, I10 - Essential (primary) hypertension Complete Blood Count Auto Diff Today E66.9 - Obesity, unspecified, E78.5 - Hyperlipidemia, unspecified, G70.00 - Myasthenia gravis without (acute) exacerbation, I10 - Essential (primary) hypertension
[2025-04-02 14:32] VITALS: BP 178/98; PULSE 82; RESP 16; TEMP 36.6; O2SAT 98; BMI 32.9
[2025-04-02 14:49] VITALS: BP 132/88
== END 2025-04-02 14:51 | disposition home or self-care (01) ==
LOC: HO.HMCHD 14:18
PROVIDERS: PCP Internal Medicine; Visit Provider Physician Assistant
DX: I10 Essential (primary) hypertension (principal); G70.00 Myasthenia gravis without (acute) exacerbation

== ENCOUNTER 2025-07-16 08:07 | Outpatient (AMB) | payer MEDICARE, OTHER, SELFPAY ==
--- NOTE | 2025-07-16 08:08 | MHC.PC.OV ---
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 Required: No Accompanied by: Self / Same As Patient Allergies shellfish derived Allergy (Severe, Verified 07/16/25 08:09) Anaphylaxis quinine (QUININE) Allergy (Unknown, Verified 07/16/25 08:09) UNKNOWN Medication List - Last Reconciled 07/16/25 by TIMOTHY Segovia cholecalciferol (vitamin D3) (Vitamin D3) 25 mcg PO DAILY epinephrine IM hydrochlorothiazide 12.5 mg PO DAILY multivitamin 1 tab PO DAILY pyridostigmine bromide 60 mg PO BID valsartan 80 mg PO DAILY Tobacco use date assessed: 07/16/25 Fall risk assessment: No Falls in past year Last assessed Fall Risk: 07/16/25 Dental Screening Dental Screen Date: 07/16/25 Did you have a dental visit in the last 12 months?: Yes Did you have a dental problem in the last 6 months where you did not have access to dental care?: No HPI HPI Comments History of Present Illness Details 70-year-old female with history of myasthenia gravis, hypertension, hyperlipidemia, and obesity presents to the office today for management of chronic conditions and to follow-up Hypertension-initial blood pressure 178/98 on recheck 132/88. Compliant with valsartan and hydrochlorothiazide Hyperlipidemia-not on statin. Last LDL 121 Myasthenia gravis-s/p thymectomy. Currently controlled with Mestinon. Previously following with Dr. Maguire in Neurology who felt the patient was in remission but ultimately stayed on medication. No sx in last 20-25 years. She has never required IV steroids. She has been discharged from Neurology and would like to remain with primary care unless symptoms recur History of endometrial cancer-2022, continues with 3 month f/up and if September looks good then 6m follow ups. Released from radiologist. She is s/p total hysterectomy through [facility]-on[facility] and underwent radiation x3 Obesity- BMI 32.9. 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 She does exercise with dancing competatively, walks, Concerns: none Health maintenance: Mammo utd Colonoscopy utd- prn follow up ROS: General: No fevers, malaise, unintentional weight loss HEENT: No blurred vision, diplopia. No lid drooping Cardiovascular: No chest pain, palpitations, or leg edema Respiratory: No shortness of breath, wheezing, cough GI: No dysphagia MSK: No myalgia, back pain Neuro: No headaches, weakness, paresthesias Skin: No rashes or lesions EXAM: Constitutional - Awake and Alert, No apparent distress Eyes - PERRL. No ptosis Cardiovascular - S1S2, RRR, No edema Respiratory - Normal lung expansion, Normal respiratory effort, No respiratory distress, CTA bilaterally Extremities - no calf tenderness bilaterally, no swelling Skin - Warm/Dry Neurological - Alert & oriented x3 Psychological - Appropriate affect [facility] Medical History Obesity HLD (hyperlipidemia) Myasthenia gravis HTN (hypertension) Surgical History Hx of section Hx of thymectomy H/O colonoscopy (~03/16/22) Family History (Updated 07/16/25 @ 08:20 by Candice Quezada MA) Mother No problems noted. Father No problems noted. Social History Household Members: Spouse Housing: House Patient Tobacco Use Status: Former Tobacco user e-Cigarette/Vaping Use: Former Use service: No Current occupational status: employed and retired Cognitive needs: No Hearing needs: No Vision needs: Yes (rx glasses) Questionnaire PHQ-9 Over the last 2 weeks, how often have you been bothered by any of the following problems? 1. Little interest or pleasure in doing things: not at all 2. Feeling down, depressed, or hopeless: not at all 3. Trouble falling or staying asleep, or sleeping too much: not at all 4. Feeling tired or having little energy: not at all 5. Poor appetite or overeating: not at all 6. Feeling bad about yourself - or that you are a failure or have let yourself or your family down: not at all 7. Trouble concentrating on things, such as reading the newspaper or watching television: not at all 8. Moving or speaking so slowly that other people could have noticed. Or the opposite - being so fidgety or restless that you have been moving around a lot more than usual: not at all 9. Thoughts that you would be better off or of hurting yourself in some way: not at all Total score: 0 Source: Developed by Drs. Tony Padron, Tiara Brian, Emiliano Bacon and colleagues, with an educational bre from [employer]. Thrive Questionnaire Date Thrive assessed: 07/16/25 I am a: Patient Within the past 12 months, did the food you bought not last and you didn't have the money to get more?: Never true Within the past 12 months, did you worry whether your food would run out before you got money to buy more?: Never true Do you have trouble paying for medicines?: No Do you have trouble getting transportation to medical appointments?: No Do you have trouble paying your heating and electricity bill?: No Do you have trouble taking care of your child, family member or friend?: No Do you have trouble with day-to-day activities such as bathing, preparing meals, shopping, managing finances, etc.?: No Are you currently unemployed and looking for a job?: No Are you interested in more education?: No THRIVE Score: 0 AUDIT C Alcohol Use Questionnaire (AUDIT-C) 1. How often do you have a drink containing alcohol?: Monthly or less 2. How many drinks containing alcohol do you have on a typical day when you are drinking?: 1 or 2 3. How often do you have six or more drinks on one occasion?: Less than monthly Total Score: 2 DEBBIE-7 AMB Questionnaire DEBBIE-7 Date DEBBIE - 7 assessed: 07/16/25 Feeling nervous, anxious, or on edge: 0 = Not at all Not being able to stop or control worryin = Not at all Worrying too much about different things: 0 = Not at all Trouble relaxin = Not at all Being so restless that it is hard to sit still: 0 = Not at all Feeling afraid as if something awful might happen: 0 = Not at all Source: Developed by Drs. Tony LTiara Saenz, Emiliano Bacon and colleagues, with an educational bre from [employer]. Physical exam (Primary Care) Vital Signs: Last Vital Signs Temp 97.3 F 07/16/25 08:09 Pulse 74 07/16/25 08:09 BP 136/82 07/16/25 08:09 Pulse Ox 99 07/16/25 08:09 Oxygen Delivery Method Room Air 07/16/25 08:09 BMI result Body Mass Index 32.9 Tobacco/Smoking Status: Tobacco use Status Tobacco use date assessed 07/16/25 07/16/25 08:10 Patient Tobacco Use Status Former Tobacco user 07/16/25 08:20 e-Cigarette/Vaping Use Former Use 07/16/25 08:20 PHQ-9: PHQ-9 Score PHQ-9: Total score 0 07/16/25 08:20 Thrive Assessment: Date of Thrive Assessment Date Thrive assessed 07/16/25 07/16/25 08:10 Coding Level of Care Code Est Pt Level 4 (52479) Complex EM visit Add On G2211 Diagnoses HTN (hypertension) I10 Myasthenia gravis G70.00 HLD (hyperlipidemia) E78.5 Assessment & Plan Assessment & Plan (1) HTN (hypertension): Code(s): I10 - Essential (primary) hypertension Category: Medical Plan: Controlled. Continue hydrochlorothiazide and valsartan. (2) Myasthenia gravis: Code(s): G70.00 - Myasthenia gravis without (acute) exacerbation Category: Medical Plan: Stable/remission. Continue mestinon. Records obtained in office. Will continue following, s should sx recur, refer to neurology (3) HLD (hyperlipidemia): Code(s): E78.5 - Hyperlipidemia, unspecified Category: Medical Plan: Continue a diet low in saturated fats and half a processed foods. We will re-evaluate lipid panel at next visit Plan Follow-up in office in 3 months. Labs to be completed. Orders: Orders Basic Metabolic Panel 6 Months E66.9 - Obesity, unspecified, E78.5 - Hyperlipidemia, unspecified, G70.00 - Myasthenia gravis without (acute) exacerbation, I10 - Essential (primary) hypertension Lipid Panel 6 Months E66.9 - Obesity, unspecified, E78.5 - Hyperlipidemia, unspecified, G70.00 - Myasthenia gravis without (acute) exacerbation, I10 - Essential (primary) hypertension TSH reflex Free T4 6 Months E66.9 - Obesity, unspecified, E78.5 - Hyperlipidemia, unspecified, G70.00 - Myasthenia gravis without (acute) exacerbation, I10 - Essential (primary) hypertension XR DEXA axial skeleton Today M89.8X9 - Other specified disorders of bone, unspecified site, N95.9 - Unspecified menopausal and perimenopausal disorder, Z13.820 - Encounter for screening for osteoporosis Complete Blood Count Auto Diff 6 Months E66.9 - Obesity, unspecified, E78.5 - Hyperlipidemia, unspecified, G70.00 - Myasthenia gravis without (acute) exacerbation, I10 - Essential (primary) hypertension Liver Panel 6 Months E66.9 - Obesity, unspecified, E78.5 - Hyperlipidemia, unspecified, G70.00 - Myasthenia gravis without (acute) exacerbation, I10 - Essential (primary) hypertension
[2025-07-16 08:09] VITALS: BP 136/82; PULSE 74; TEMP 36.3; O2SAT 99; BMI 32.9
== END 2025-07-16 08:34 | disposition home or self-care (01) ==
LOC: HO.HMCHD 08:08
PROVIDERS: PCP Internal Medicine; Visit Provider Physician Assistant
DX: I10 Essential (primary) hypertension (principal); G70.00 Myasthenia gravis without (acute) exacerbation; E78.5 Hyperlipidemia, unspecified

== ENCOUNTER → 2025-07-16 08:07 | Outpatient (BNVA) | payer MEDICARE, OTHER, SELFPAY | PROVIDERS: PCP Internal Medicine; Visit Provider Physician Assistant | DX: I10 Essential (primary) hypertension (principal); G70.00 Myasthenia gravis without (acute) exacerbation; E78.5 Hyperlipidemia, unspecified; E66.9 Obesity, unspecified; Z68.32 Body mass index [BMI] 32.0-32.9, adult; Z85.42 Personal history of malignant neoplasm of other parts of uterus; Z79.899 Other long term (current) drug therapy; Z13.30 Encounter for screening examination for mental health and behavioral disorders, unspecified | CPT/HCPCS: 96127; 99212 ==